=== PATIENT | female | born 1965 | race Caucasian/White ===

== ENCOUNTER → 2022-06-01 | Outpatient (CLI) | payer BC, OTHER ==
[~2022-06-01] MED LIST: AMBIEN10 MG PO; AMRIX15 MG PO; BACTROBAN OINT22 GM EXT; CYCLOBENZAPRINE10 MG PO; DICLOFENAC GEL TD; FLUOXETINE HCL40 MG PO; GABAPENTIN400 MG PO; IBU800 MG PO; KEFLEX500 MG PO; LIDOCAINE PRILOCAINE TD; LOVENOX40 MG/0.4 SC; NABUMETONE500 MG PO; NORCO 10-325 T1 EACH PO; PRAMIPEXOLE DI0.5 MG PO; RANITIDINE HCL300 MG PO; TEGRETOL XR100 MG PO; TOPROL XL 50 MG50 MG PO; VITAMIN C500 M1 PO
[2022-06-01 12:16] LABS: HEMOGLOBIN 13.9 gm/dl (12.3-15.3); RED BLOOD COUNT 5.05 M/UL (4.00-5.10); WHITE BLOOD COUNT 7.6 K/UL (4.5-11.0)
[2022-06-01 12:52] LABS: BUN/CREATININE RATIO 16 (0-10)
== END ==
LOC: ECHO 11:30 → CT 13:00
PROVIDERS: Internal Medicine Cardiovascular Disease
DX: I73.9 Peripheral vascular disease, unspecified (principal); I10 Essential (primary) hypertension; R94.31 Abnormal electrocardiogram [ECG] [EKG]; R06.02 Shortness of breath
CPT/HCPCS: ECHO; 36415; 75635; 80053; 80061; 85025; 93306; Q9967

== ENCOUNTER → 2022-06-23 | Outpatient (CLI) | payer BC, OTHER | LOC: NM 08:00 | DX: R07.9 Chest pain, unspecified (principal); R06.02 Shortness of breath; R94.39 Abnormal result of other cardiovascular function study | CPT/HCPCS: 78452; 93017; A9502; J2785 ==